=== PATIENT | male | born 1970 | race Two or more races ===

== ENCOUNTER → 2017-02-26 | Outpatient (CLI) | payer BC ==
[~2017-02-26] MED LIST: AMARYL2 MG PO; BAYER ASPIRIN325 M1 PO; CLEOCIN PO; CRESTOR40 MG PO; FLEXERIL10 MG PO; HYDROCODON-ACE1 EAC7 PO; HYDROCODON-ACE1 EAC9 PO; KEFLEX500 M1 PO; KRILL OIL 3001 EACH PO; LEVEMIR SUBQ; LISINOPRIL10 MG PO; LISINOPRIL20 MG PO; LOPID600 MG PO; LOPRESSOR PO; LYSINE1000 MG PO; METFORMIN PO; NIACIN500 M1 PO; NOVOLIN 70/30 V10 M1; NOVOLIN 70100 UNITS/ SUBQ; PANTOPRAZOLE SO40 MG PO; PAXIL PO; PRAVACHOL PO; PROTONIX PO; SIMVASTATIN80 MG PO; SODIUM CHLORI1000 ML; TRICOR145 MG PO; ZETIA PO
--- NOTE | ~2017-02-26 | MR165 ---
[facility] A Service of [facility] RADIOLOGY TEXT RESULTS PATIENT: HITESH HOUSTON LOCATION: [facility] : 68 UNIT #: [id number] AGE: [address]: Nico Salas MD SEX: M ORDER DR: [id number] [facility] [address] [place], [place] [address] [id number] O MR#: [id number] Acc #: [id number] NAME: HITESH HOUSTON : 1970 SEX: M STUDY DATE/TIME: 02/26/2017 18:57 UNIT: [facility] ROOM: STUDY DESCRIPTION: MR Shoulder Wo Contrast Rt Attending Physician: Nico Salas M.D. Referring Physician: Nico Salas M.D. Ordering Physician: Nico Salas M.D. Primary Care Physician: Rashad Richter M.D. MRI CENTER REPORT This report is preliminary unless electronic signature is present. EXAM MRI right shoulder, 02/26/2017. COMPARISON No correlative studies. HISTORY Order states MRI right shoulder without contrast. History sheet states right shoulder pain for 2 years. No known injury. Chronic aching. Now has intense pain for 5 days. Cannot raise arm sideways. History of stroke and diabetes. FINDINGS There is moderate AC joint arthrosis with moderate clavicular and mild acromial osteophyte formation, capsuloligamentous thickening, and mild subarticular marrow edema. Coracoclavicular and coracoacromial ligaments are intact. There is a cluster of low signal foci measuring 23 x 18 mm (craniocaudal by AP) in the region of the posteroinferior infraspinatus tendon insertion and adjacent subacromial-subdeltoid bursa. The bursa demonstrates marked inflammation, especially posteriorly, with extension into the intermuscular fascial plane between the deltoid and the teres minor/infraspinatus muscles. There is associated infraspinatus tendinosis and bursal side tendon irregularity and fraying. 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 Calcification is predominately in the bursa and it has incited a prominent inflammatory reaction. There is also a mild amount of edema in the infraspinatus muscle at the myotendinous junction with a tiny myotendinous cyst. There is anterior insertional supraspinatus tendinosis and articular sided predominately partial thickness tear with a probable pinhole STS. [facility] A Service of [facility] RADIOLOGY TEXT RESULTS PATIENT: HITESH HOUSTON LOCATION: [facility] : 68 UNIT #: [id number] AGE: [address]: Nico Salas MD SEX: M ORDER DR: full-thickness component at the anterior insertional footprint. There is no tendon retraction. The tear measures 13 mm AP by 10 mm transverse. Subscapularis and teres minor tendons are intact. Biceps anchor, biceps tendon, and glenoid labrum are normal. Glenohumeral joint shows no effusion, chondral/osteochondral lesion, or visible loose body. There is no marrow lesion or fracture. There is no muscle atrophy. IMPRESSION 1. The predominant abnormality is apparent calcific tendinitis of the infraspinatus tendon in the mechanical phase with calcific extrusion into the subacromial-subdeltoid bursa, where there is a prominent inflammatory reaction. There is associated bursal side tendon fraying but no discrete infraspinatus tendon tear. 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 2. Tendinosis and anterior insertional supraspinatus tendon tear which measures 10 x 13 mm (transverse by AP). The tear is predominantly along the articular insertional side with probable pinhole full-thickness component but no detachment. The partial undersurface tear is approximately 50% in tendon thickness. 3. AC joint arthrosis discussed above. 4. Biceps, labrum, and glenohumeral joint are normal. 5. Consider radiographic correlation for confirmation of calcification adjacent to the posterior greater tuberosity. Dictated by... Mary Mercado M.D. THIS IS AN ELECTRONICALLY VERIFIED REPORT Mary Mercado M.D. at 02/27/2017 10:53 AM MARTHA/lyle TD: 02/27/2017 10:36 JOB #: [id number] MRI CENTER REPORT Page 1 of 1 COPY
== END | disposition home or self-care (01) ==
LOC: CMRI 18:29
DX: M25.511 Pain in right shoulder (principal); M75.81 Other shoulder lesions, right shoulder; M75.51 Bursitis of right shoulder; E83.50 Unspecified disorder of calcium metabolism; S46.011A Strain of muscle(s) and tendon(s) of the rotator cuff of right shoulder, initial encounter; M19.011 Primary osteoarthritis, right shoulder
CPT/HCPCS: 73221